=== PATIENT | male | born 1955 | race Caucasian/White ===

== ENCOUNTER 2022-04-07 08:35 | Outpatient (CLI) | payer MEDICARE, SELFPAY ==
--- NOTE | 2022-04-07 08:50 | ECHO_ITS ---
Patient Info Name: Jordan Nuñez Age: 67 years : 1955 Gender: Male Ht: 72 in Wt: 300 lbs BSA: 2.69 m2 HR: 64 bpm BP: 155 / 95 mmHg Technical Quality: Fair Exam Date: 04/07/2022 9:33 AM Exam Location: [facility] Patient Status: Outpatient Admit Date: 04/07/2022 Staff Ordering Physician: Emil Morel DO Program Counselor: Messi Marvin RDCS Attending Provider: Emil Morel DO Referring Physician: Maria Teresa GUIDO; Exam Type: CA echo doppler color flow Study Info Indications R00.2 - Palpitations Complete two-dimensional, color flow and Doppler transthoracic echocardiogram is performed. Summary 1. Complete two-dimensional, color flow and Doppler transthoracic echocardiogram is performed. 2. Left ventricular chamber dimension is normal. 3. Left ventricular systolic function is normal, estimated at 60-65%. 4. There is mildly increased left ventricular wall thickness. 5. The left ventricular diastolic function is grade I diastolic dysfunction. 6. E/e' 8 is minimally elevated. 7. There is mild aortic valve sclerosis. 8. The aortic valve is not well visualized. Cannot determine number of aortic valve leaflets. 9. There is moderate aortic valve regurgitation. Left Ventricle E/e' 8 is minimally elevated. Left ventricular chamber dimension is normal. Left ventricular systolic function is normal, estimated at 60-65%. There is mildly increased left ventricular wall thickness. The left ventricular diastolic function is grade I diastolic dysfunction. Right Ventricle Right ventricular systolic function is normal and with normal TAPSE 2.4 cm. Right ventricular chamber dimension is normal. Left Atria Left atrial chamber dimension is normal. Right Atria Right atrial chamber dimension is normal. Aortic Valve The aortic valve is not well visualized. Cannot determine number of aortic valve leaflets. There is mild aortic valve sclerosis. There is no aortic valve stenosis. There is moderate aortic valve regurgitation. Pulmonic Valve There is no pulmonic regurgitation. Mitral Valve There is no mitral valve stenosis. There is no mitral valve regurgitation. Tricuspid Valve There is no tricuspid valve regurgitation. Pericardium/Pleural There is no pericardial effusion. Inferior Vena Cava Normal inferior vena cava with >50% collapse upon inspiration consistent with normal right atrial pressure, 5 mmHg. Aorta The aortic root size at the sinus of Valsalva is normal. Left Ventricular Outflow Tract Name Value Normal LVOT 2D LVOT Diameter 2.2 cm LVOT Doppler LVOT Peak Gradient 5 mmHg LVOT Mean Gradient 3 mmHg LVOT VTI 22 cm LVOT VTI/AV VTI Ratio 1.0 LVOT Stroke Volume 87 ml LVOT CO 5.8 l/min LVOT CI 2.1 l/min/m2 Mitral Valve Name Value
--- NOTE | 2022-04-14 15:25 | WPDHOLTEREM ---
Holter/Event Monitor Holter/Event Monitor Date of procedure: 04/07/22 Holter/Event Procedure: 48 Hr Holter Monitor Indications: Palpitations Conclusion: 1. 48 hour holter monitor on 04/07/22. 2. Predominant rhythm is sinus rhythm. HR range 41-171 bpm; average HR 71 bpm. 3. There are 1,415 premature supraventricular complexes, 269 premature supraventricular couplets. There are 373 episodes of atrial fibrillation with total burden of 6.3%, fastest at 171 bpm and longest lasted 333 beats. 4. There are 170 premature ventricular complexes. No ventricular tachycardia. 5. No sinoatrial or atrioventricular blocks. No significant pauses greater than 2 seconds. 6. Patient reports symptoms of heart beats, palpitations, shortness of breath which demonstrate sinus rhythm, HR range at 74-88 bpm and atrial fibrillation, HR range 103-167 bpm.
== END 2022-04-07 08:36 | disposition home or self-care (01) ==
PROVIDERS: PCP Internal Medicine; Visit Provider Internal Medicine
DX: R00.2 Palpitations (principal); I35.1 Nonrheumatic aortic (valve) insufficiency
CPT/HCPCS: 93225; 93226; 93306

== ENCOUNTER 2022-08-17 08:28 | Outpatient (CLI) | payer MEDICARE, SELFPAY ==
--- NOTE | 2022-09-15 18:03 | WPDSLEEPSTUD ---
Sleep Study Date of Study: 08/17/22 Ordering Provider: Floyd Mccann MD Interpreting Physician: Letty Pizano MD Sleep Study Type: Polysomnogram Height: 1.83 m Weight: 136.985 kg Body Mass Index: 40.9 Neck Circumference (inches): 19.5 [place]: 4 Reason for Sleep Study New onset atrial fibrillation Sleep History Jordan Nuñez is a 67-year-old man who does not think there is anything much wrong with his sleep but was recently diagnosed with intermittent atrial Fibrillation in March 2022. 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 He does not awaken from sleep feeling short of breath. He rarely awakens at night with heartburn, belching or coughing. He occasionally snores but only rarely loudly enough that others complain about it. He occasionally has trouble sleeping with a cold. He does not wake up gasping for breath at night. He does not have breathing problems at night observed by others. He does not sweat excessively at night. He occasionally notices his heart pounding or beating irregularly at night. He rarely falls asleep during the day but if he chooses to take a nap he is able to fall asleep. He does not fall asleep involuntarily. He does not fall asleep while driving. He does not have loss of muscle tone with strong emotion. He does not have daytime difficulties due to excessive sleepiness. 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 He does not have loss of muscle tone with strong emotion. He does not have daytime difficulties due to excessive sleepiness. He does not feel paralyzed on waking or falling asleep. He does not have vivid dreamlike scenes on waking or falling asleep. He does not feel afraid to go to sleep. He does not have nightmares. He occasionally remembers his dreams. He does not have racing thoughts. He does not feel sad, depressed, or anxious. He does not have muscular tension. He rarely notices parts of his body jerking, clonus. He does not kick at night. He does not have crawling or aching feelings in his legs. He does not have any kind of leg pain at night. He denies morning jaw pain and denies grinding his teeth during sleep. He occasionally is bothered by pain during the day. He rarely is awakened by pain at night. he is generally refreshed when he awakes in the morning. He frequently wakes up feeling stiff in the morning. He occasionally wakes up with sore achy muscles and pain in the neck and spine. He has seasonal allergies. He has arthritis, has had several surgeries including a cervical fusion, lumbar fusion and both knees replaced. Normal bedtime is 10:00 p.m. falling asleep quickly waking 1-2 times at night to go to the bathroom. He is able to return to sleep within 5-10 minutes. 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 Wakes at 6:30 a.m.. His weekend schedule is the same. He estimates getting between 7 and 8 hours of sleep normally. He occasionally takes naps in the afternoon. A short nap lasting 10 or 15 minutes may be refreshing. He feels better in the morning and afternoon compared to other times a day. Habits: Never smoked tobacco. Caffeine 3 servings a day. No alcohol or recreational substances. [facility] Past Medical History Medical History (Updated 09/15/22 @ 19:00 by Letty Pizano MD) BPH (benign prostatic hyperplasia) Essential (primary) hypertension Hyperlipidemia, unspecified Intermittent atrial fibrillation Family History Family History Father Hypertension Patient's father is Social History Social History Smoking status: Never smoker Second hand tobacco smoke exposure: No Alcohol intake: current Lack of Transportation: No Lack of Food: Never True Current Housing: I Have Housing Concerned About Future Housing: No Difficulty Paying Gas/Electric Bills: No D
[2022-09-15 19:04] VITALS: BMI 40.9
--- NOTE | 2022-11-25 11:54 | SLEEP ---
new calls [phone]
== END 2022-08-18 06:58 | disposition home or self-care (01) ==
LOC: ANHCSM 08:29
PROVIDERS: PCP Internal Medicine; Visit Provider Internal Medicine
DX: G47.33 Obstructive sleep apnea (adult) (pediatric) (principal); I48.91 Unspecified atrial fibrillation; I10 Essential (primary) hypertension; E66.9 Obesity, unspecified; M48.02 Spinal stenosis, cervical region; N40.0 Benign prostatic hyperplasia without lower urinary tract symptoms; Z68.41 Body mass index [BMI] 40.0-44.9, adult
CPT/HCPCS: 95810

== ENCOUNTER 2022-10-12 08:09 | Outpatient (CLI) | payer MEDICARE, SELFPAY ==
--- NOTE | 2022-10-30 15:36 | WPDSLEEPSTUD ---
Sleep Study Date of Study: 10/12/22 Ordering Provider: mEil Morel DO Interpreting Physician: Letty Pizano MD Sleep Study Type: CPAP Titration Height: 1.83 m Weight: 132.449 kg Body Mass Index: 39.6 Neck Circumference (inches): 19.5 [place]: 4 Reason for Sleep Study * 08/17/22 basic PSG after new onset atrial fibrillation; the basic showed moderate obstructive sleep apnea, the apnea-hypopnea index is 19.9 with desaturation to 78%.??? He presents now for his titration. Sleep History Jordan Nuñez is a 67-year-old man with no sleep complaints but was diagnosed with intermittent atrial fibrillation in March 2022. 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 He does not awaken from sleep feeling short of breath.? He rarely awakens at night with heartburn, belching or coughing.? He occasionally snores but only rarely loudly enough that others complain about it.? He occasionally has trouble sleeping with a cold.? He does not wake up gasping for breath at night.? He does not have breathing problems at night observed by others.? He does not sweat excessively at night.? He occasionally notices his heart pounding or beating irregularly at night.? He rarely falls asleep during the day but if he chooses to take a nap he is able to fall asleep.? He does not fall asleep involuntarily.? He does not fall asleep while driving.? He does not have loss of muscle tone with strong emotion.? He does not have daytime difficulties due to excessive sleepiness.? 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 He does not have loss of muscle tone with strong emotion.? He does not have daytime difficulties due to excessive sleepiness.? He does not feel paralyzed on waking or falling asleep.? He does not have vivid dreamlike scenes on waking or falling asleep.? He does not feel afraid to go to sleep.? He does not have nightmares.? He occasionally remembers his dreams.? He does not have racing thoughts.? He does not feel sad, depressed, or anxious.? He does not have muscular tension.? He rarely notices parts of his body jerking, clonus.? He?does not kick at night.? He?does not have crawling or aching feelings in his legs.? He?does not have any kind of leg pain at night.? He denies morning jaw pain and denies grinding his teeth during sleep.? He occasionally is bothered by pain during the day.? He rarely is awakened by pain at night. ? he is generally refreshed when he awakes in the morning.? He frequently wakes up feeling stiff in the morning.? He occasionally wakes up with sore achy muscles and pain in the neck and spine. ? He has seasonal allergies.? ? He has arthritis, has had several surgeries including a cervical fusion, lumbar fusion and both knees replaced. Normal bedtime is 10:00 p.m. falling asleep quickly waking 1-2 times at night to go to the bathroom.? He is able to return to sleep within 5-10 minutes.? 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 Wakes at 6:30 a.m..? His weekend schedule is the same.? He estimates getting between 7 and 8 hours of sleep normally.? He occasionally takes naps in the afternoon.? A short nap lasting 10 or 15 minutes may be refreshing.? He feels better in the morning and afternoon compared to other times a day. Habits: ? Never smoked tobacco.? Caffeine 3 servings a day.? No alcohol or recreational substances. [facility] Past Medical History Medical History BPH (benign prostatic hyperplasia) Essential (primary) hypertension Hyperlipidemia, unspecified Intermittent atrial fibrillation Sleep apnea Family History Family History Father Hypertension Patient's father is Social History Social History Smoking status: Never smoker Second hand tobacco smoke exposure: No Alcohol intake: current Lack of Transportation: No Lack
[2022-10-31 13:37] VITALS: BMI 39.6
== END 2022-10-13 07:40 | disposition home or self-care (01) ==
PROVIDERS: PCP Internal Medicine; Visit Provider Internal Medicine
DX: G47.33 Obstructive sleep apnea (adult) (pediatric) (principal)
CPT/HCPCS: 95811

== ENCOUNTER 2023-02-26 12:46 | Emergency (ER) | payer MEDICARE, SELFPAY ==
--- NOTE | 2023-02-26 12:49 | ED.SKABFB ---
HPI - Skin/Abscess/Foreign Bdy General Chief complaint: Skin/Abscess/Foreign Body Stated complaint: Right Leg Cat Bite/Scratch Time Seen by Provider: 02/26/23 12:48 Source: patient Mode of arrival: ambulatory Limitations: no limitations History of Present Illness HPI narrative: Jordan is a 68-year-old male patient presenting to clinic today with complaints of possible cat bite or scratch to his right anterior leg that occurred yesterday around 7:00 a.m. in the morning. He reports no known fever or chills. Does have 2 puncture isaacs to the anterior leg with a small partial skin avulsion. Mild redness and swelling noted around the area Related Data Home Medications Medication Instructions Recorded Confirmed metoprolol succinate 100 mg 150 mg PO DAILY 02/19/23 02/26/23 tablet,extended release 24 hr naproxen 500 mg tablet 500 mg PO BID 02/26/23 02/26/23 Allergies Allergy/AdvReac Type Severity Reaction Status Date / Time Penicillins AdvReac Mild Rash Verified 02/26/23 12:58 tetracycline AdvReac Mild Rash Verified 02/26/23 12:58 Review of Systems Review of Systems: Pertinent positives per HPI. Patient denies any fever, chills, rash, headache, visual changes, dizziness, cough, runny nose, sore throat, shortness of breath, chest pain, palpitations, nausea, vomiting, diarrhea, constipation, abdominal pain, or any urinary issues. [facility] Past Medical History Medical History BPH (benign prostatic hyperplasia) Essential (primary) hypertension Hyperlipidemia, unspecified Intermittent atrial fibrillation Sleep apnea Family History Family History Father Hypertension Patient's father is Social History Social History Smoking status: Never smoker Second hand tobacco smoke exposure: No Alcohol intake: current Lack of Transportation: No Lack of Food: Never True Current Housing: I Have Housing Concerned About Future Housing: No Difficulty Paying Gas/Electric Bills: No Difficulty Paying for Meds: No Currently Unemployed: No Education: Trade/Vocational Certificate Difficulty w/ Childcare or Family Care: No Comments At the time of my signature, I reviewed and agree with the nursing past medical, surgical, social, and family history. There is no relevant family history pertinent to the patient complaint. Exam Narrative: General: Well-developed, well nourished, in no apparent distress Head: Normocephalic, atraumatic. Cardio: Regular rate and rhythm, s1 and s2 normal, no murmur appreciated. Resp: Clear to auscultation bilaterally, no rhonchi, rales, wheezing or rubs. Integumentary: [place], warm, and dry, intact without lesion, 2 scabbed over puncture wounds to the right lower anterior leg and 1 small 0.5 partial flap scabbed over skin avulsion to the right anterior over leg. Mild redness and swelling noted with erythema, mild tender to palpation, no induration or abscess formation palpable Course Course Emergency Course: Portions of this record may have been created with voice recognition software. Level of Care: Express Care Visit Vital Signs Vital signs: Vital signs reviewed MDM - Skin/Abscess/Foreign Bdy MDM Narrative Medical decision making narrative: At the time of visit patient is resting comfortably on the exam table. I suspect patient has a infected animal bite to his right lower leg. Prescription for Levaquin and metronidazole were sent to the pharmacy. Patient has allergies to penicillin tetracycline. Patient is also taking lisinopril that can increase potassium while taking Bactrim. Supportive measures were discussed with the patient he voiced understanding discharge instructions and agrees to treatment plan. Differential Diagnosis Differential diagnosis: Likely abscess of skin o
[2023-02-26 13:00] VITALS: BP 134/65; PULSE 60; RESP 20; TEMP 36.8; O2SAT 98
== END 2023-02-26 13:15 | disposition home or self-care (01) ==
PROVIDERS: Emergency Provider Nurse Practitioner Family; PCP Internal Medicine
DX: S81.831A Puncture wound without foreign body, right lower leg, initial encounter (principal); W55.01XA Bitten by cat, initial encounter; N40.0 Benign prostatic hyperplasia without lower urinary tract symptoms; I10 Essential (primary) hypertension; E78.5 Hyperlipidemia, unspecified; I48.91 Unspecified atrial fibrillation
CPT/HCPCS: 99213; G0463